=== PATIENT | male | born 1995 | race Caucasian/White ===

== ENCOUNTER 2018-01-22 17:16 | Emergency (ER) | payer BC ==
[~2018-01-22] VITALS: Ht 172.7 cm; Wt 72.6 kg
[2018-01-22 17:20] VITALS: BP 107/73
[2018-01-22] MEDS ORDERED: HYDROCODONE/APAP 5/325MG 1 EACH TABLET ONE (19:59)
[2018-01-22] MEDS ORDERED: HYDROCODONE/APAP 5/325MG 1 EACH TABLET PO ONE (20:00)
== END 2018-01-22 20:42 | disposition home or self-care (01) ==
LOC: ER 17:20
DX: S62.317A Displaced fracture of base of fifth metacarpal bone, left hand, initial encounter for closed fracture (principal); Z60.2 Problems related to living alone; W01.0XXA Fall on same level from slipping, tripping and stumbling without subsequent striking against object, initial encounter; Y93.67 Activity, basketball; Y92.89 Other specified places as the place of occurrence of the external cause; Y99.8 Other external cause status
CPT/HCPCS: 29125; 73130; 99284; A4606; Z7610

== ENCOUNTER 2018-01-27 17:56 | Emergency (ER) | payer BC ==
[~2018-01-27] VITALS: Ht 177.8 cm; Wt 68.0 kg
[2018-01-27 18:01] VITALS: BP 110/61
== END 2018-01-27 20:15 | disposition home or self-care (01) ==
LOC: ER 17:58
DX: S62.317A Displaced fracture of base of fifth metacarpal bone, left hand, initial encounter for closed fracture (principal); X58.XXXA Exposure to other specified factors, initial encounter; Y93.89 Activity, other specified; Y92.89 Other specified places as the place of occurrence of the external cause; Y99.8 Other external cause status
CPT/HCPCS: 73200; 99284; A4606; Z7610